=== PATIENT | female | born 1960 | race Caucasian/White ===

== ENCOUNTER 2019-08-12 05:50 | Day surgery (SDC) | payer BC, SELFPAY ==
[~2019-08-12] VITALS: Ht 165.1 cm; Wt 89.4 kg
[2019-08-12] MEDS ORDERED: METOCLOPRAMIDE HCL 10 MG/2 ML VIAL IVP PRN (08:00)
[2019-08-12] MEDS ORDERED: MIDAZOLAM HCL 2 MG/2 ML VIAL (VERSED) IVP PRN (08:00)
[2019-08-12] MEDS ORDERED: LR 1,000 ML IV SCH (08:00)
[2019-08-12] MEDS ORDERED: HYDROmorphone 1 MG INJ. 1 MG/ML AMPUL IVP PRN ×2 (08:00)
[2019-08-12] MEDS ORDERED: ONDANSETRON HCL 4 MG/2 ML VIAL IVP PRN (08:00)
[2019-08-12] MEDS ORDERED: MEPERIDINE HCL/PF 25 MG/ML DISP.SYRIN IVP PRN (08:00)
[2019-08-12] MEDS ORDERED: NS IRRIG SOLN 1000 ML IR ONE (08:34)
[2019-08-12] MEDS ORDERED: ONDANSETRON HCL 4 MG/2 ML VIAL ONE (08:34)
[2019-08-12] MEDS ORDERED: CIPROFLOXACIN HCL 0.3% EYE DRP 2.5 ML DROPS ONE (08:34)
[2019-08-12] MEDS ORDERED: fentaNYL CITRATE/PF 100 MCG/2 ML AMP ONE (08:34)
[2019-08-12] MEDS ORDERED: OXYMETAZOLINE HCL 0.05% NASAL SPRAY NS ONE (08:34)
[2019-08-12] MEDS ORDERED: PROPOFOL 200MG/ 20ML VIAL (DIPRIVAN) IV ONE (08:34)
[2019-08-12] MEDS ORDERED: SEVOFLURANE 15 MIN GAS INH ONE (08:34)
[2019-08-12] MEDS ORDERED: MIDAZOLAM HCL 5 MG/ML VIAL (VERSED) IV ONE (08:34)
[2019-08-12] MEDS ORDERED: DEXAMETHASONE SOD PHOSPHATE 4 MG/ML VIAL ONE (08:34)
[2019-08-12] MEDS ORDERED: LR 1,000 ML IV.SOLN IV ONE (08:34)
[2019-08-12] MEDS ORDERED: HYDROmorphone 1 MG INJ. 1 MG/ML AMPUL ONE (09:18)
[2019-08-12 09:25] VITALS: BP_SYST 132
== END 2019-08-12 11:05 | disposition home or self-care (01) ==
LOC: SMU 05:50 → SDS 05:50
PROVIDERS: ATTEND Otolaryngology
DX: H90.3 Sensorineural hearing loss, bilateral (principal); H68.101 Unspecified obstruction of Eustachian tube, right ear; H65.93 Unspecified nonsuppurative otitis media, bilateral; J45.20 Mild intermittent asthma, uncomplicated; J10.89 Influenza due to other identified influenza virus with other manifestations; E66.3 Overweight; Z11.59 Encounter for screening for other viral diseases
CPT/HCPCS: 69436; J1100; J1170; J2250; J2405; J2704; J3010; J3465; J7120; L8699; U0003